=== PATIENT | female | born 1970 | race Caucasian/White ===

== ENCOUNTER → 2017-12-18 | Outpatient (CLI) | payer BC, OTHER ==
[~2017-12-18] MED LIST: ALBU90OI6 INH; AZIT250 PO; CRUTCH4 USE; HYDACE5 PO; IBUP600 PO; LAMO100 PO; LAMO25 PO; LEVSOD125 PO; LISI20 PO; METO50 PO; METO50ER PO; METPRE4DP PO; MOTION RELIEF25 MG PO; SERT25 PO; SERT50 PO
[2017-12-18 14:16] LABS: BASOPHILS ABSOLUTE AUTO 0.04 K/mm3 (0.00-0.23); BASOPHILS PERCENT AUTO 1 % (0-2); EOSINOPHILS ABSOLUTE AUTO 0.18 K/mm3 (0.00-0.68); EOSINOPHILS PERCENT AUTO 4 % (0-6); Hematocrit 35.2 % (33.0-51.0); Hemoglobin 10.9 g/dL (11.5-16.0); IMMATURE GRAN PERCENT AUTO 0 % (0-1); LYMPHOCYTES ABSOLUTE AUTO 1.93 K/mm3 (0.84-5.20); LYMPHOCYTES PERCENT AUTO 46 % (21-46); MONOCYTES ABSOLUTE AUTO 0.33 K/mm3 (0.16-1.47); MONOCYTES PERCENT AUTO 8 % (4-13); Mean Corpuscular HGB 24.5 pg (26.0-34.0); Mean Corpuscular Volume 79 fL (80-100); Mean Platelet Volume 11.3 fL (9.1-12.4); NEUTROPHILS ABSOLUTE AUTO 1.69 K/mm3 (1.96-9.15); NEUTROPHILS PERCENT AUTO 41 % (41-73); Platelet Count 301 K/mm3 (150-400); RDW Coefficient Variation 14.3 % (11.7-14.2); RDW Standard Deviation 41.2 fL (35.1-46.3); Red Blood Cell Count 4.44 M/mm3 (3.80-5.20); White Blood Cell Count 4.17 K/mm3 (4.00-11.30)
== END | disposition home or self-care (01) ==
LOC: LAB 14:00 → LAB SHORT 14:00
PROVIDERS: Hospitalist
DX: R59.0 Localized enlarged lymph nodes (principal)
CPT/HCPCS: 85025; 85651

== ENCOUNTER 2017-12-21 11:20 | Emergency (ER) | payer BC, OTHER ==
[~2017-12-21] VITALS: Ht 165.1 cm; Wt 90.3 kg
[~2017-12-21 11:20] MED LIST changes: -MOTION RELIEF25 MG PO
[2017-12-21 13:20] LABS: BASOPHILS ABSOLUTE AUTO 0.04 K/mm3 (0.00-0.23); BASOPHILS PERCENT AUTO 1 % (0-2); EOSINOPHILS ABSOLUTE AUTO 0.18 K/mm3 (0.00-0.68); EOSINOPHILS PERCENT AUTO 5 % (0-6); Hematocrit 33.7 % (33.0-51.0); Hemoglobin 10.6 g/dL (11.5-16.0); IMMATURE GRAN ABSOLUTE AUTO 0.01 K/mm3 (0.00-0.10); IMMATURE GRAN PERCENT AUTO 0 % (0-1); LYMPHOCYTES ABSOLUTE AUTO 1.95 K/mm3 (0.84-5.20); LYMPHOCYTES PERCENT AUTO 50 % (21-46); MONOCYTES ABSOLUTE AUTO 0.34 K/mm3 (0.16-1.47); MONOCYTES PERCENT AUTO 9 % (4-13); Mean Corpuscular HGB 24.7 pg (26.0-34.0); Mean Corpuscular HGB Conc 31.5 g/dL (31.5-36.5); Mean Corpuscular Volume 79 fL (80-100); Mean Platelet Volume 10.5 fL (9.1-12.4); NEUTROPHILS ABSOLUTE AUTO 1.41 K/mm3 (1.96-9.15); NEUTROPHILS PERCENT AUTO 36 % (41-73); Platelet Count 290 K/mm3 (150-400); RDW Coefficient Variation 14.4 % (11.7-14.2); RDW Standard Deviation 40.9 fL (35.1-46.3); Red Blood Cell Count 4.29 M/mm3 (3.80-5.20); White Blood Cell Count 3.93 K/mm3 (4.00-11.30)
[2017-12-21 13:41] LABS: Anion Gap 6 mmol/L (6-16); Blood Urea Nitrogen 13 mg/dL (8-24); Bun/Creatinine Ratio 17.8 (12.0-20.0); CO2, Blood 27 mmol/L (21-32); Calcium, Blood 8.8 mg/dL (8.5-10.1); Chloride, Blood 109 mmol/L (98-108); Creatinine, Blood 0.73 mg/dL (0.40-1.00); Glomerular Filtration Rate >60 (60-); Glucose, Blood 84 mg/dL (70-99); Potassium, Blood 4.1 mmol/L (3.5-5.5); Sodium, Blood 142 mmol/L (136-145)
[2017-12-21] MEDS ORDERED: MOTION RELIEF25 MG PO (14:58)
== END 2017-12-21 15:15 | disposition home or self-care (01) ==
LOC: ER 11:20
PROVIDERS: Nurse Practitioner Family
DX: B34.9 Viral infection, unspecified (principal); R42 Dizziness and giddiness; I10 Essential (primary) hypertension; E03.9 Hypothyroidism, unspecified; Z79.899 Other long term (current) drug therapy
CPT/HCPCS: 36415; 70450; 80048; 85025; 99284

== ENCOUNTER 2018-08-27 07:55 | Emergency (ER) | payer BC, OTHER ==
[~2018-08-27] VITALS: Ht 167.6 cm; Wt 95.2 kg
[~2018-08-27 07:55] MED LIST changes: +MOTION RELIEF25 MG PO
[2018-08-27] MEDS ORDERED: IRON (08:31)
[2018-08-27] MEDS ORDERED: VENL150ER PO (08:31)
[2018-08-27 09:01] LABS: BASOPHILS ABSOLUTE AUTO 0.04 K/mm3 (0.00-0.23); BASOPHILS PERCENT AUTO 1 % (0-2); EOSINOPHILS ABSOLUTE AUTO 0.28 K/mm3 (0.00-0.68); EOSINOPHILS PERCENT AUTO 7 % (0-6); Hematocrit 33.6 % (33.0-51.0); Hemoglobin 10.2 g/dL (11.5-16.0); IMMATURE GRAN ABSOLUTE AUTO 0.07 K/mm3 (0.00-0.10); IMMATURE GRAN PERCENT AUTO 2 % (0-1); LYMPHOCYTES ABSOLUTE AUTO 1.28 K/mm3 (0.84-5.20); LYMPHOCYTES PERCENT AUTO 33 % (21-46); MONOCYTES ABSOLUTE AUTO 0.29 K/mm3 (0.16-1.47); MONOCYTES PERCENT AUTO 8 % (4-13); Mean Corpuscular HGB 23.7 pg (26.0-34.0); Mean Corpuscular HGB Conc 30.4 g/dL (31.5-36.5); Mean Corpuscular Volume 78 fL (80-100); Mean Platelet Volume 10.6 fL (9.1-12.4); NEUTROPHILS ABSOLUTE AUTO 1.92 K/mm3 (1.96-9.15); NEUTROPHILS PERCENT AUTO 50 % (41-73); Platelet Count 258 K/mm3 (150-400); RDW Coefficient Variation 14.6 % (11.7-14.2); RDW Standard Deviation 40.8 fL (35.1-46.3); Red Blood Cell Count 4.31 M/mm3 (3.80-5.20); White Blood Cell Count 3.88 K/mm3 (4.00-11.30)
[2018-08-27 09:22] LABS: Alanine Aminotransfer (ALT/SGP 24 U/L (12-78); Albumin, Blood 3.9 g/dL (3.4-5.0); Albumin/Globulin Ratio 1.1 (0.8-1.8); Alk Phos 94 U/L (50-136); Anion Gap 9 mmol/L (6-16); Aspartate Aminotrans (AST/SGOT 17 U/L (12-37); Bilirubin, Total 0.3 mg/dL (0.1-1.0); Blood Urea Nitrogen 8 mg/dL (8-24); Bun/Creatinine Ratio 9.9 (12.0-20.0); CO2, Blood 24 mmol/L (21-32); Chloride, Blood 108 mmol/L (98-108); Creatinine, Blood 0.81 mg/dL (0.40-1.00); Globulin, Blood 3.5 g/dL (2.2-4.0); Glomerular Filtration Rate >60 (60-); Glucose, Blood 106 mg/dL (70-99); Potassium, Blood 3.3 mmol/L (3.5-5.5); Sodium, Blood 141 mmol/L (136-145); Total Protein, Blood 7.4 g/dL (6.4-8.2); Troponin I <0.015 ng/mL (0.000-0.040)
== END 2018-08-27 11:18 | disposition home or self-care (01) ==
LOC: ER 07:55
PROVIDERS: Emergency Medicine
DX: R07.9 Chest pain, unspecified (principal); D64.9 Anemia, unspecified; E66.9 Obesity, unspecified; E03.9 Hypothyroidism, unspecified; Z87.891 Personal history of nicotine dependence; Z79.899 Other long term (current) drug therapy
CPT/HCPCS: 36415; 71046; 80053; 83690; 83880; 84484; 85025; 93005; 93010; 96374; 99285-25; J1885

== ENCOUNTER 2018-10-29 06:33 | Inpatient (IN) | payer BC, OTHER ==
[~2018-10-29] VITALS: Ht 162.6 cm; Wt 97.1 kg
[~2018-10-29 06:33] MED LIST changes: +IRON PO; +MULTI VITAMIN1 EACH PO; +VENL150ER PO
--- NOTE | 2018-10-29 07:14 | NUR ---
Ambulatory in Day Surgery History, Chart, Medications and Allergies reviewed before start of procedure. Lungs clear T/O to Auscultation. Patient confirms NPO status and agrees with scheduled surgery.
--- NOTE | 2018-10-29 08:12 | NUR ---
10/29/18 0812 Clifton Barrow ANCEF 2GM IVPB ADMINISTERED @[address] BARRAGAN IN RIGHT FOREARM 18GA IV
--- NOTE | 2018-10-29 18:00 | NUR ---
PT STABLE POST OP. 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 CHANGED TO PERCOCET AND TORADOL AND PT PAIN HAS BEEN WELL CONTROLLED. PT HAD SOME MILD NAUSEA POST OP, NO EMESIS. SHADE SMALL AMTS CLEAR LIQUIDS, MAY ADVANCE TOLERATED. PINEDA DRAINING WELL, TO BE DC'D IN THE AM. DRESSING TO TRANSVERSE ABDOMEN WITH SMALL MARYAM RED DRAINAGE. JUANA PAD IN PLACE, DRY. ENCOURAGING PT TO GET OOB FOR SHORT WALKS AND ALSO TO TCDB. PAS TO BLE. PT USES CALL LIGHT APPROPRIATELY.
[2018-10-30 05:00] LABS: BASOPHILS ABSOLUTE AUTO 0.02 K/mm3 (0.00-0.23); BASOPHILS PERCENT AUTO 0 % (0-2); EOSINOPHILS ABSOLUTE AUTO 0.02 K/mm3 (0.00-0.68); EOSINOPHILS PERCENT AUTO 0 % (0-6); Hematocrit 30.2 % (33.0-51.0); Hemoglobin 9.5 g/dL (11.5-16.0); IMMATURE GRAN ABSOLUTE AUTO 0.03 K/mm3 (0.00-0.10); IMMATURE GRAN PERCENT AUTO 0 % (0-1); LYMPHOCYTES ABSOLUTE AUTO 1.67 K/mm3 (0.84-5.20); LYMPHOCYTES PERCENT AUTO 17 % (21-46); MONOCYTES ABSOLUTE AUTO 0.57 K/mm3 (0.16-1.47); MONOCYTES PERCENT AUTO 6 % (4-13); Mean Corpuscular HGB 24.7 pg (26.0-34.0); Mean Corpuscular HGB Conc 31.5 g/dL (31.5-36.5); Mean Corpuscular Volume 78 fL (80-100); Mean Platelet Volume 11.2 fL (9.1-12.4); NEUTROPHILS ABSOLUTE AUTO 7.67 K/mm3 (1.96-9.15); NEUTROPHILS PERCENT AUTO 77 % (41-73); Platelet Count 235 K/mm3 (150-400); RDW Coefficient Variation 18.2 % (11.7-14.2); Red Blood Cell Count 3.85 M/mm3 (3.80-5.20); White Blood Cell Count 9.98 K/mm3 (4.00-11.30)
--- NOTE | 2018-10-30 07:27 | NUR ---
SHIFT SUMMARY PT A&O X4 T/O SHIFT. NO ACUTE CHANGES. POD#1 OPEN HYSTER; TRANSVERSE ABD SITE DRESSING INTACT; SHADOW TO THE MAJORITY OF DRESSING, VERY SLIGHT INCREASE IN DRAINAGE OVER SHIFT. NO VAGINAL BLEEDING NOTED. ABD SOFT; BT X4; PT STS FLATUS AND DENIES NAUSEA. PAIN MANAGED PER EMAR. SCD'S TO BLE'S. PINEDA DC'D APPROX 0615; EDUCATION PROVIDED. USE OF I/S AND DEEP BREATH EDUCATION. CALL LIGHT IN REACH; PT DEMONSTRATES USE. REPORT GIVEN TO DAY SHIFT RN.
--- NOTE | 2018-10-30 14:19 | NUR ---
PATIENT AMBULATING IN [place]. PASSING FLATUS, SMALL BM. VOIDED 75 ML, PVR = 175 ML. CONT TO MONITOR. PATIENT STATES PAIN CONTROLLED WITH PO PAIN MED.
--- NOTE | 2018-10-30 15:35 | NUR ---
PATIENT VOIDED 500 ML W/O DIFFICULTY. 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 DENIES NEED FOR PAIN MED; SHE WILL CALL WHEN NEEDED. CONT TO MONITOR.
--- NOTE | 2018-10-30 18:17 | NUR ---
SHIFT SUMMARY PATIENT STATES PAIN CONTROLLED WITH PO PAIN MED. VOIDING WELL. TAKING PO W/O C/O. INCISION SITE DRESSING CHANGED EARLIER THIS SHIFT, INTACT AT THIS TIME. PATIENT UP AD TAYLOR IN ROOM. +FLATUS. NO C/O AT THIS TIME.
--- NOTE | 2018-10-31 04:43 | NUR ---
SHIFT SUMMARY PT A&O X4 T/O SHIFT. POD#2 OPEN TOTAL HYSTER; TRANSEVERSE ABD DRESSING WITH SCANT SS SHADOW. ABD SOFT; FEW BT X4; PT DENIES NAUSA. ABD SOFT. PAIN MANGED PER EMAR. PT BED MOBILE AND INDEPENDENT IN ROOM. SCD'S TO BLE'S. CALL LIGHT IN REACH; PT DEMONSTRATES USE. WCTM UNTIL REPORT TO DAY SHIFT RN.
[2018-10-31] MEDS ORDERED: Percocet 5-3251 EACH PO (14:56)
[2018-10-31] MEDS ORDERED: IBUP800 PO (14:57)
--- NOTE | 2018-10-31 15:15 | NUR ---
SHIFT SUMMARY PT AND FAMILY PROVIDED WITH WRITTEN AND VERBAL DISCHARGE INSTRUCTIONS. THEY REPORTED UNDERSTANDING AFTER QUESTIONS WERE ANSWERED. DRESSINGS PROVIDED. VSS. WILL CONTINUE TO MONITOR UNTIL REPORT TO ONCOMING RN.
== END 2018-10-31 15:14 | disposition home or self-care (01) | DRG 743 ==
LOC: SURS 06:33 → PRE IP 07:30 → SURS 10:23
PROVIDERS: ADMIT Obstetrics & Gynecology
PROC: 0UT90ZZ Resection of Uterus, Open Approach (ICD-10-PCS; principal; 2018-10-29 07:30)
DX: N92.0 Excessive and frequent menstruation with regular cycle (principal); D64.9 Anemia, unspecified; Z98.84 Bariatric surgery status; Z87.891 Personal history of nicotine dependence
CPT/HCPCS: 36415; 85025; 88307; J0690; J1100; J1885; J2250; J2405; J2765; J3010; J7120

== ENCOUNTER 2019-02-26 07:58 | Emergency (ER) | payer BC ==
[~2019-02-26] VITALS: Ht 167.6 cm; Wt 97.5 kg
[~2019-02-26 07:58] MED LIST changes: +IBUP800 PO; +Percocet 5-3251 EACH PO
[2019-02-26 08:41] LABS: BASOPHILS ABSOLUTE AUTO 0.04 K/mm3 (0.00-0.23); BASOPHILS PERCENT AUTO 1 % (0-2); EOSINOPHILS ABSOLUTE AUTO 0.23 K/mm3 (0.00-0.68); EOSINOPHILS PERCENT AUTO 5 % (0-6); Hematocrit 35.1 % (33.0-51.0); IMMATURE GRAN ABSOLUTE AUTO 0.02 K/mm3 (0.00-0.10); IMMATURE GRAN PERCENT AUTO 1 % (0-1); LYMPHOCYTES ABSOLUTE AUTO 1.68 K/mm3 (0.84-5.20); LYMPHOCYTES PERCENT AUTO 38 % (21-46); MONOCYTES ABSOLUTE AUTO 0.27 K/mm3 (0.16-1.47); MONOCYTES PERCENT AUTO 6 % (4-13); Mean Corpuscular HGB 24.7 pg (26.0-34.0); Mean Corpuscular HGB Conc 31.3 g/dL (31.5-36.5); Mean Corpuscular Volume 79 fL (80-100); Mean Platelet Volume 11.1 fL (9.1-12.4); NEUTROPHILS ABSOLUTE AUTO 2.13 K/mm3 (1.96-9.15); NEUTROPHILS PERCENT AUTO 49 % (41-73); Platelet Count 234 K/mm3 (150-400); RDW Coefficient Variation 15.4 % (11.7-14.2); RDW Standard Deviation 43.9 fL (35.1-46.3); Red Blood Cell Count 4.46 M/mm3 (3.80-5.20); White Blood Cell Count 4.37 K/mm3 (4.00-11.30)
[2019-02-26 09:04] LABS: Anion Gap 7 mmol/L (6-16); Blood Urea Nitrogen 12 mg/dL (8-24); Bun/Creatinine Ratio 16.7 (12.0-20.0); CO2, Blood 23 mmol/L (21-32); Calcium, Blood 8.1 mg/dL (8.5-10.1); Chloride, Blood 109 mmol/L (98-108); Creatinine, Blood 0.72 mg/dL (0.40-1.00); Glomerular Filtration Rate >60 (60-); Glucose, Blood 115 mg/dL (70-99); Potassium, Blood 3.3 mmol/L (3.5-5.5); Sodium, Blood 139 mmol/L (136-145)
[2019-02-26] MEDS ORDERED: Motion Sickness25 M1 PO (10:00)
[2019-02-26] MEDS ORDERED: Ativan0.5 MG PO (10:00)
== END 2019-02-26 10:58 | disposition home or self-care (01) ==
LOC: ER 07:58
PROVIDERS: Emergency Medicine
DX: H81.10 Benign paroxysmal vertigo, unspecified ear (principal); F41.9 Anxiety disorder, unspecified; D64.9 Anemia, unspecified; E03.9 Hypothyroidism, unspecified; I10 Essential (primary) hypertension; Z88.5 Allergy status to narcotic agent; Z88.8 Allergy status to other drugs, medicaments and biological substances; Z79.899 Other long term (current) drug therapy; Z87.891 Personal history of nicotine dependence
CPT/HCPCS: 36415; 70450; 80048; 85025; 93005; 93010; 96374; 99284-25; J2060

== ENCOUNTER 2020-01-06 17:29 | Emergency (ER) | payer BC ==
[~2020-01-06] VITALS: Ht 165.1 cm; Wt 95.2 kg
[~2020-01-06 17:29] MED LIST changes: +Ativan0.5 MG PO; +Motion Sickness25 M1 PO
== END 2020-01-06 19:35 | disposition home or self-care (01) ==
LOC: ER 17:29
DX: M75.81 Other shoulder lesions, right shoulder (principal); I10 Essential (primary) hypertension; D64.9 Anemia, unspecified; E03.9 Hypothyroidism, unspecified; Z87.891 Personal history of nicotine dependence; Z88.5 Allergy status to narcotic agent; Z88.8 Allergy status to other drugs, medicaments and biological substances; Z79.899 Other long term (current) drug therapy
CPT/HCPCS: 73030; 76882; 96372; 99284-25; J1885

== ENCOUNTER 2020-03-28 14:13 | Emergency (ER) | payer BC ==
[~2020-03-28] VITALS: Ht 157.5 cm; Wt 95.2 kg
== END 2020-03-28 17:03 | disposition home or self-care (01) ==
LOC: ER 14:13
DX: H53.8 Other visual disturbances (principal); Z88.5 Allergy status to narcotic agent; Z88.8 Allergy status to other drugs, medicaments and biological substances; Z79.899 Other long term (current) drug therapy; E03.9 Hypothyroidism, unspecified; I10 Essential (primary) hypertension; Z87.891 Personal history of nicotine dependence
CPT/HCPCS: 70450; 99284-25

== ENCOUNTER 2020-08-03 07:07 | Day surgery (SDC) | payer BC ==
[~2020-08-03] VITALS: Ht 160 cm; Wt 99.8 kg
[~2020-08-03 07:07] MED LIST changes: +LEVOTHYROXINE200 MCG PO; +MULTIPLE VITAM1 EACH PO; +NASACORT10.8 ML
--- NOTE | 2020-08-03 09:06 | NUR ---
08/03/20 0906 Candace Carrizales INTERSCALENE NERVE BLOCK PERFORMED IN PRE-OP 0851: TIME OUT COMPLETE 0852: SITE CHECK PERFORMED; 2MG VERSED IVP ADMINISTERED BY DR. CAAL 0853: PROCEDURE START 0858: PROCEDURE END PULSE OX ON PATIENT THROUGHOUT PROCEDURE. PT TOLERATED WELL WITH VERBAL QUES, NO ISSUES OR COMPLICATIONS.
--- NOTE | 2020-08-03 09:53 | NUR ---
08/03/20 0953 Fred Burnett 1MG OF EPI ADDED TO THE FIRST 3 BAGS OF LR USED FOR IRRIGATION OF THE SHOULDER DURING SURGERY.
== END 2020-08-03 12:08 | disposition home or self-care (01) ==
LOC: ORSCSDS 07:07
DX: M75.21 Bicipital tendinitis, right shoulder (principal); M75.51 Bursitis of right shoulder; M75.101 Unspecified rotator cuff tear or rupture of right shoulder, not specified as traumatic; M65.819 Other synovitis and tenosynovitis, unspecified shoulder; I10 Essential (primary) hypertension; E78.5 Hyperlipidemia, unspecified; E03.9 Hypothyroidism, unspecified; Z87.891 Personal history of nicotine dependence; Z79.899 Other long term (current) drug therapy; E66.01 Morbid (severe) obesity due to excess calories; Z68.39 Body mass index [BMI] 39.0-39.9, adult
CPT/HCPCS: C1713; J0171; J0690; J1100; J2250; J2405; J2704; J2765; J3010; J7120

== ENCOUNTER 2020-08-04 17:37 | Emergency (ER) | payer BC ==
[~2020-08-04] VITALS: Ht 160 cm; Wt 99.8 kg
== END 2020-08-04 22:16 | disposition home or self-care (01) ==
LOC: ER 17:37
DX: R55 Syncope and collapse (principal); I10 Essential (primary) hypertension; E03.9 Hypothyroidism, unspecified; Z88.8 Allergy status to other drugs, medicaments and biological substances; Z88.5 Allergy status to narcotic agent; Z79.899 Other long term (current) drug therapy; Z87.891 Personal history of nicotine dependence
CPT/HCPCS: 73030; 93005; 93010; 96374; 99284-25; A9270-GY; J2270

== ENCOUNTER 2020-09-23 13:43 | Emergency (ER) | payer BC ==
[~2020-09-23] VITALS: Ht 160 cm; Wt 97.5 kg
[2020-09-23 14:38] LABS: BASOPHILS ABSOLUTE AUTO 0.02 K/mm3 (0.00-0.23); BASOPHILS PERCENT AUTO 1 % (0-2); EOSINOPHILS PERCENT AUTO 0 % (0-6); Hematocrit 38.8 % (33.0-51.0); Hemoglobin 12.8 g/dL (11.5-16.0); IMMATURE GRAN ABSOLUTE AUTO 0.02 K/mm3 (0.00-0.10); IMMATURE GRAN PERCENT AUTO 1 % (0-1); LYMPHOCYTES ABSOLUTE AUTO 0.78 K/mm3 (0.84-5.20); LYMPHOCYTES PERCENT AUTO 19 % (21-46); MONOCYTES ABSOLUTE AUTO 0.12 K/mm3 (0.16-1.47); MONOCYTES PERCENT AUTO 3 % (4-13); Mean Corpuscular HGB 28.9 pg (26.0-34.0); Mean Corpuscular Volume 88 fL (80-100); Mean Platelet Volume 11.6 fL (9.1-12.4); NEUTROPHILS ABSOLUTE AUTO 3.09 K/mm3 (1.96-9.15); NEUTROPHILS PERCENT AUTO 77 % (41-73); Platelet Count 156 K/mm3 (150-400); RDW Coefficient Variation 13.2 % (11.7-14.2); RDW Standard Deviation 42.2 fL (35.1-46.3); Red Blood Cell Count 4.43 M/mm3 (3.80-5.20); White Blood Cell Count 4.03 K/mm3 (4.00-11.30)
[2020-09-23 14:56] LABS: Alanine Aminotransfer (ALT/SGP 26 U/L (12-78); Albumin, Blood 3.6 g/dL (3.4-5.0); Albumin/Globulin Ratio 0.9 (0.8-1.8); Alk Phos 92 U/L (50-136); Anion Gap 8 mmol/L (6-16); Aspartate Aminotrans (AST/SGOT 37 U/L (12-37); Bilirubin, Total 0.5 mg/dL (0.1-1.0); Blood Urea Nitrogen 14 mg/dL (8-24); Bun/Creatinine Ratio 19.3 (12.0-20.0); CO2, Blood 23 mmol/L (21-32); Calcium, Blood 8.3 mg/dL (8.5-10.1); Chloride, Blood 107 mmol/L (98-108); Creatinine, Blood 0.73 mg/dL (0.40-1.00); Globulin, Blood 4.1 g/dL (2.2-4.0); Glomerular Filtration Rate >60 (60-); Glucose, Blood 113 mg/dL (70-99); Potassium, Blood 3.6 mmol/L (3.5-5.5); Sodium, Blood 138 mmol/L (136-145); Total Protein, Blood 7.7 g/dL (6.4-8.2); Troponin I <0.015 ng/mL (0.000-0.040)
[2020-09-23] MEDS ORDERED: LISI20 PO (15:15)
[2020-09-23] MEDS ORDERED: Ventolin/Prove6.7 GM INH (15:15)
[2020-09-23] MEDS ORDERED: AZIT500 PO (15:30)
== END 2020-09-23 17:40 | disposition home or self-care (01) ==
LOC: ER 13:43
PROVIDERS: Emergency Medicine
DX: U07.1 COVID-19 (principal); J12.82 Pneumonia due to coronavirus disease 2019; I10 Essential (primary) hypertension; E03.9 Hypothyroidism, unspecified; Z88.8 Allergy status to other drugs, medicaments and biological substances; Z88.5 Allergy status to narcotic agent; Z79.899 Other long term (current) drug therapy; Z87.891 Personal history of nicotine dependence
CPT/HCPCS: 36415; 71045; 80053; 84484; 85025; 93005; 93010; 99285-25; A9270

== ENCOUNTER 2021-01-31 07:27 | Day surgery (SDC) | payer BC ==
[~2021-01-31] VITALS: Ht 157.5 cm; Wt 98.8 kg
[~2021-01-31 07:27] MED LIST changes: +AZIT500 PO; +Ventolin/Prove6.7 GM INH
== END 2021-01-31 09:47 | disposition home or self-care (01) ==
LOC: ORSCSDS 07:27
PROVIDERS: Surgery
PROC: 0DBP8ZX Excision of Rectum, Via Natural or Artificial Opening Endoscopic, Diagnostic (ICD-10-PCS; principal; 2021-01-31 08:45)
DX: Z12.11 Encounter for screening for malignant neoplasm of colon (principal); Z12.12 Encounter for screening for malignant neoplasm of rectum; K62.1 Rectal polyp; F41.8 Other specified anxiety disorders; I10 Essential (primary) hypertension; Z87.891 Personal history of nicotine dependence; Z79.899 Other long term (current) drug therapy
CPT/HCPCS: 88305; J0330; J0461; J2405; J2704; J7120

== ENCOUNTER 2022-01-11 06:12 | Day surgery (SDC) | payer BC ==
[~2022-01-11] VITALS: Ht 160 cm; Wt 108.1 kg
[~2022-01-11 06:12] MED LIST changes: +[UNRECOGNIZED DRUG - OTHER] PO
--- NOTE | 2022-01-11 06:46 | NUR ---
Ambulatory in Day Surgery History, Chart, Medications and Allergies reviewed before start of procedure. Pre-Op teaching done. Pt verbalizes understanding. Patient States Post-Procedure ride home has been arranged.
--- NOTE | 2022-01-11 07:43 | NUR ---
01/11/22 0743 Shawna Ocasio History, Chart, Medications and Allergies reviewed before start of procedure. Patient confirms NPO status and agrees with scheduled surgery. 3-LEAD EKG REVIEWED WITH PHYSICIAN PRIOR TO START OF PROCEDURE. MONITOR INTACT WITH CONTINUOUS PULSE OXIMETRY AND INTERMITTENT BP. PATIENT DETERMINED TO BE ASA APPROPRIATE FOR ANESTHESIA BY DR MCGHEE. THROAT SPRAYED WITH 2%LIDOCAINE 100MG JUST PRIOR TO START OF PROCEDURE. BITE BLOCK AND POM THEN PLACED
--- NOTE | 2022-01-11 08:26 | NUR ---
Patient up to Ambulate independently. Gait steady. Discharge instructions reviewed with patient. Patient verbalizes understanding. Copy given to patient to take home. Patient States Post-Procedure ride home has been arranged, WHO WILL BE HERE SOON. PT TO BE Discharged via wheelchair to private car for ride home WHEN HER MOM GETS HERE TO PICK HER UP.
--- NOTE | 2022-01-11 08:45 | NUR ---
PT TOLERATING PO. USED RESTROOM, STILL WAITING FOR RIDE TO ARRIVE.
--- NOTE | 2022-01-11 09:08 | NUR ---
PT REPORTS RIDE HERE IN PARKING LOT. Discharged via wheelchair to private car for ride home.
== END 2022-01-11 09:08 | disposition home or self-care (01) ==
LOC: ORSCMMR 06:12 → ORD 07:30 → ORSCMMR 07:30
PROVIDERS: Surgery
PROC: 0DB78ZX Excision of Stomach, Pylorus, Via Natural or Artificial Opening Endoscopic, Diagnostic (ICD-10-PCS; principal; 2022-01-11 07:30)
PROC: 0DB58ZX Excision of Esophagus, Via Natural or Artificial Opening Endoscopic, Diagnostic (ICD-10-PCS; principal; 2022-01-11 07:30)
DX: K21.9 Gastro-esophageal reflux disease without esophagitis (principal); Z98.84 Bariatric surgery status; E66.01 Morbid (severe) obesity due to excess calories; Z68.41 Body mass index [BMI] 40.0-44.9, adult; E03.9 Hypothyroidism, unspecified; Z87.891 Personal history of nicotine dependence; Z79.899 Other long term (current) drug therapy
CPT/HCPCS: 88305; 88342; J2704; J7120

== ENCOUNTER 2022-08-20 05:52 | Day surgery (SDC) | payer BC ==
[~2022-08-20] VITALS: Ht 162.6 cm; Wt 108.1 kg
[2022-08-20] MEDS ORDERED: AMOCLA500 PO (06:24)
[2022-08-20] MEDS ORDERED: NASACORT10.8 ML (06:26)
[2022-08-20] MEDS ORDERED: ALBU90OI INH (06:27)
--- NOTE | 2022-08-20 07:06 | NUR ---
History, Chart, Medications and Allergies reviewed before start of procedure. Patient confirms NPO status and agrees with scheduled surgery. Lungs clear T/O to Auscultation. [employer]IN [employer] HOME MANAGER X3 AMPULES USED TO CLEAN NARES BILAT PER ORDER. KNEE HIGH MENDEZ HOSE AND CALF PAS APPLIED BILAT.
--- NOTE | 2022-08-20 19:18 | NUR ---
SHIFT SUMMARY INITIALLY POST OP STRUGGLED w/ PAIN & WORRIED ABOUT NAUSEA. DID HAVE 1 EPISODE OF NAUSEA w/ NO EMESIS. WORKED w/ THERAPY. FEELING MUCH BETTER NOW. EATING, DRINKING, & VOIDING. PAIN WELL MANAGED.
--- NOTE | 2022-08-21 04:25 | NUR ---
POD1 RIGHT TOTAL HIP. SENSATION AND CIRCULATION REMAINS INTACT IN RLE. AQUACEL DRESSING IS C/D/I. VSS, HR NOTED TO BE SLIGHTLY BRADYCARDIC AT TIMES, PT REMAINS ASYMPTOMATIC AND STATES THIS IS NORMAL FOR HER. PT STATED SHE DID NOT SLEEP WELL T/O THE NIGHT D/T NOT BEING IN HER OWN BED. MEDICATED FOR PAIN WITH ONLY SCHEDULED MEDS, PT REPORTS FEELING "AMAZED" AT HOW WELL SHE FEELS. PT TOLLERATING PO INTAKE W/O N/V, AMBULATING TO THE BATHROOM TO VOID W/O DIFFICULTY. PLAN FOR PT TO D/C HOME TODAY. THE PATIENT IS CURRENTLY RESTING IN BED, IN NO DISTRESS, CALL LIGHT IN REACH.
[2022-08-21 04:44] LABS: BASOPHILS ABSOLUTE AUTO 0.02 K/mm3 (0.00-0.23); BASOPHILS PERCENT AUTO 0 % (0-2); EOSINOPHILS PERCENT AUTO 0 % (0-6); Hematocrit 32.5 % (33.0-51.0); Hemoglobin 10.7 g/dL (11.5-16.0); IMMATURE GRAN ABSOLUTE AUTO 0.05 K/mm3 (0.00-0.10); IMMATURE GRAN PERCENT AUTO 0 % (0-1); LYMPHOCYTES ABSOLUTE AUTO 1.39 K/mm3 (0.84-5.20); LYMPHOCYTES PERCENT AUTO 12 % (21-46); MONOCYTES ABSOLUTE AUTO 0.59 K/mm3 (0.16-1.47); MONOCYTES PERCENT AUTO 5 % (4-13); Mean Corpuscular HGB Conc 32.9 g/dL (31.5-36.5); Mean Corpuscular Volume 88 fL (80-100); Mean Platelet Volume 10.8 fL (9.1-12.4); NEUTROPHILS ABSOLUTE AUTO 9.61 K/mm3 (1.96-9.15); NEUTROPHILS PERCENT AUTO 82 % (41-73); Platelet Count 204 K/mm3 (150-400); RDW Coefficient Variation 13.8 % (11.7-14.2); RDW Standard Deviation 45.1 fL (35.1-46.3); Red Blood Cell Count 3.69 M/mm3 (3.80-5.20); White Blood Cell Count 11.66 K/mm3 (4.00-11.30)
[2022-08-21 05:05] LABS: Bun/Creatinine Ratio 21.3 (12.0-20.0); Calcium, Blood 8.4 mg/dL (8.5-10.1); Creatinine, Blood 0.85 mg/dL (0.40-1.00); Potassium, Blood 3.9 mmol/L (3.5-5.5)
[2022-08-21] MEDS ORDERED: ASPI81CH PO (09:02)
[2022-08-21] MEDS ORDERED: Percocet 5-3251 EACH PO (09:02)
--- NOTE | 2022-08-21 10:30 | NUR ---
DISCHARGE EDUCATION CLEARED THERAPY.EATING, DRINKING, & VOIDING. DISCUSSED DISCHARGE. SCRIPTS GIVEN YESTERDAY TO FRIEND. DRSGS & POLAR PACK PACKED. DECLINES PO PAIN MEDS. WAITING FOR RIDE.
--- NOTE | 2022-08-21 11:28 | NUR ---
ESCORTED OUT VIA WC
== END 2022-08-21 11:25 | disposition home or self-care (01) ==
LOC: ORSCMMR 05:52 → SURS 10:00 → ORSCMMR 08-21 11:25
PROVIDERS: Orthopaedic Surgery
PROC: 0SR90JZ Replacement of Right Hip Joint with Synthetic Substitute, Open Approach (ICD-10-PCS; principal; 2022-08-20 07:30)
DX: M16.11 Unilateral primary osteoarthritis, right hip (principal); I10 Essential (primary) hypertension; E78.5 Hyperlipidemia, unspecified; Z87.891 Personal history of nicotine dependence; J45.909 Unspecified asthma, uncomplicated; E03.9 Hypothyroidism, unspecified; E66.01 Morbid (severe) obesity due to excess calories; Z68.41 Body mass index [BMI] 40.0-44.9, adult; F32.A Depression, unspecified; Z79.899 Other long term (current) drug therapy
CPT/HCPCS: 36415; 72170; 80048; 85025; 97110; 97116; 97162; 97530; A9270; C1776; J0171; J0690; J0735; J1100; J1170; J1885; J2250; J2405; J2704; J2765; J2795; J3010; J7120

== ENCOUNTER → 2022-12-27 | Outpatient (CLI) | payer BC ==
[~2022-12-27] MED LIST changes: +ALBU90OI INH; +AMOCLA500 PO; +ASPI81CH PO
== END | disposition home or self-care (01) ==
LOC: LAB SHORT 11:09 → LAB 11:09
DX: R53.83 Other fatigue (principal)
CPT/HCPCS: 83690

== ENCOUNTER → 2023-05-29 | Outpatient (CLI) | payer BC | LOC: PLD 09:26 → LAB SHORT 09:26 | DX: D23.71 Other benign neoplasm of skin of right lower limb, including hip (principal) | CPT/HCPCS: 88305 ==

== ENCOUNTER → 2024-02-23 | Outpatient (CLI) | payer OTHER ==
[2024-02-23 13:11] LABS: Urine Magnesium 9.5 mg/dL
== END | disposition home or self-care (01) ==
LOC: LAB 06:30 → LAB SHORT 06:30
PROVIDERS: Nurse Practitioner Family
DX: Z00.00 Encounter for general adult medical examination without abnormal findings (principal)
CPT/HCPCS: 81050; 83735

== ENCOUNTER 2025-02-28 16:53 | Emergency (ER) | payer OTHER ==
[~2025-02-28] VITALS: Ht 160 cm; Wt 108.0 kg
[2025-02-28 16:58] VITALS: BP 193/108
[2025-02-28] MEDS ORDERED: TIZA4 PO (19:07)
== END 2025-02-28 19:09 | disposition home or self-care (01) ==
LOC: ER 16:53
DX: M54.17 Radiculopathy, lumbosacral region (principal); I10 Essential (primary) hypertension; E89.0 Postprocedural hypothyroidism; Z87.891 Personal history of nicotine dependence; Z79.890 Hormone replacement therapy; Z79.82 Long term (current) use of aspirin; Z79.899 Other long term (current) drug therapy
CPT/HCPCS: 93971; 99283-25

== ENCOUNTER 2025-05-12 11:54 | Emergency (ER) | payer OTHER ==
[~2025-05-12] VITALS: Ht 160 cm; Wt 108.9 kg
[~2025-05-12 11:54] MED LIST changes: +TIZA4 PO
[2025-05-12 12:50] LABS: BASOPHILS ABSOLUTE AUTO 0.04 K/mm3 (0.00-0.23); BASOPHILS PERCENT AUTO 1 % (0-2); EOSINOPHILS ABSOLUTE AUTO 0.22 K/mm3 (0.00-0.68); EOSINOPHILS PERCENT AUTO 4 % (0-6); Hematocrit 38.7 % (33.0-51.0); Hemoglobin 13.0 g/dL (11.5-16.0); IMMATURE GRAN ABSOLUTE AUTO 0.01 K/mm3 (0.00-0.10); IMMATURE GRAN PERCENT AUTO 0 % (0-1); LYMPHOCYTES ABSOLUTE AUTO 2.47 K/mm3 (0.84-5.20); LYMPHOCYTES PERCENT AUTO 46 % (21-46); MONOCYTES ABSOLUTE AUTO 0.41 K/mm3 (0.16-1.47); MONOCYTES PERCENT AUTO 8 % (4-13); Mean Corpuscular HGB Conc 33.6 g/dL (31.5-36.5); Mean Corpuscular Volume 88 fL (80-100); NEUTROPHILS ABSOLUTE AUTO 2.26 K/mm3 (1.96-9.15); NEUTROPHILS PERCENT AUTO 42 % (41-73); NRBC ABSOLUTE 0.00 K/mm3 (0.00-0.02); NRBC Auto 0.0 /100 WBC (0.0-0.2); Platelet Count 233 K/mm3 (150-400); RDW Coefficient Variation 13.1 % (11.7-14.2); RDW Standard Deviation 41.4 fL (35.1-46.3)
[2025-05-12 13:12] LABS: Alanine Aminotransfer (ALT/SGP 31.0 U/L (12-78); Albumin, Blood 3.7 g/dL (3.4-5.0); Albumin/Globulin Ratio 1.2 (0.8-1.8); Anion Gap 9.0 mmol/L (3-11); Aspartate Aminotrans (AST/SGOT 21.0 U/L (12-37); Bilirubin, Total 0.4 mg/dL (0.1-1.0); Blood Urea Nitrogen 15.0 mg/dL (8-24); CO2, Blood 21.0 mmol/L (21-32); Calcium, Blood 8.8 mg/dL (8.5-10.1); Chloride, Blood 109.0 mmol/L (98-108); Creatinine, Blood 0.62 mg/dL (0.40-1.00); Globulin, Blood 3.2 g/dL (2.2-4.0); Glucose, Blood 88.0 mg/dL (70-99); Potassium, Blood 4.1 mmol/L (3.5-5.5); Sodium, Blood 135.0 mmol/L (136-145); Total Protein, Blood 6.9 g/dL (6.4-8.2)
[2025-05-12] MEDS ORDERED: Atropine/Scopalam/Hyoscam/PB 5 ML UDC PO ONE (16:15)
[2025-05-12 17:26] VITALS: BP 146/85
== END 2025-05-12 17:26 | disposition home or self-care (01) ==
LOC: ER 11:54
PROVIDERS: Emergency Medicine
DX: R00.2 Palpitations (principal); R07.2 Precordial pain; Z79.899 Other long term (current) drug therapy; Z87.891 Personal history of nicotine dependence
CPT/HCPCS: 71046; 80053; 83690; 84484; 85025; 93005; 93010; 93246; 99285-25; A9270